=== PATIENT | female | born 1960 ===

== ENCOUNTER 2018-07-11 09:30 | Emergency (ER) | payer OTHER ==
[2018-07-11 09:32] VITALS: BMI 22.4
[2018-07-11 09:36] VITALS: O2SAT 97
[2018-07-11] MEDS ORDERED: Mag&Al/Simet/Diphen/Lido 237 ML KIT PO STA (09:49)
--- NOTE | 2018-07-11 10:42 | C.PDOC ---
History Of Present Illness 58 y/o female presents to the ED for evaluation of throat pain. States 3 days ago she was cleaning her bathroom with bleach and felt she inhaled a lot of fumes. Patient is now complaining of a sore throat and pain with swallowing. States she feels as if needs to clear her throat constantly. Now also complaining of pain to her shoulders and back. Also notes that she wakes every day with throat itching and bilateral eye tearing. Otherwise no fever, cough, runny nose, headache, chest pain, SOB, abdominal pain, nausea, vomiting, or other complaints. Time Seen by Provider: 07/11/18 09:44 Chief Complaint (Nursing): ENT Problem History Per: Patient History/Exam Limitations: no limitations Onset/Duration Of Symptoms: Days Current Symptoms Are (Timing): Still Present Past Medical History Reviewed: Historical Data, Nursing Documentation, Vital Signs Vital Signs: Last Vital Signs Temp 98.0 F 07/11/18 09:32 Pulse 62 07/11/18 09:32 Resp 18 07/11/18 09:32 BP 117/80 07/11/18 09:32 Pulse Ox 97 07/11/18 09:32 - Medical History PMH: Gastrointestinal Ulcer, Hyperthyroidism Surgical History: Cholecystectomy Family History: States: Unknown Family Hx - Social History Hx Tobacco Use: No Hx Alcohol Use: No Hx Substance Use: No - Immunization History Hx Tetanus Toxoid Vaccination: No Hx Influenza Vaccination: No Hx Pneumococcal Vaccination: No Review Of Systems Except As Marked, All Systems Reviewed And Found Negative. Constitutional: Negative for: Fever, Chills Eyes: Positive for: Other (Increased tearing). Negative for: Vision Change ENT: Positive for: Throat Pain, Other (Pain on swallowing). Negative for: Nose Discharge Cardiovascular: Negative for: Chest Pain Respiratory: Negative for: Cough, Shortness of Breath Gastrointestinal: Negative for: Nausea, Vomiting, Abdominal Pain Musculoskeletal: Positive for: Shoulder Pain, Back Pain Neurological: Negative for: Headache, Dizziness Physical Exam - Physical Exam Appears: Non-toxic, No Acute Distress Skin: Warm, Dry, No Rash Head: Atraumatic, Normacephalic Eye(s): bilateral: Normal Inspection, PERRL, EOMI Nose: Normal Oral Mucosa: Moist Throat: No Erythema, No Exudate, No Drooling Neck: Normal ROM, Supple Chest: Symmetrical, No Deformity Cardiovascular: Rhythm Regular, No Murmur Respiratory: Normal Breath Sounds, No Accessory Muscle Use, No Rhonchi, No Wheezing Gastrointestinal/Abdominal: Bowel Sounds, Soft, No Tenderness Back: No CVA Tenderness, No Vertebral Tenderness, No Paraspinal Tenderness Extremity: Bilateral: Atraumatic, Normal Color And Temperature Neurological/Psych: Oriented x3 ED Course And Treatment O2 Sat by Pulse Oximetry: 97 (RA) Pulse Ox Interpretation: Normal Medical Decision Making Medical Decision Making: Impression: Exposure to chemical fumes vs Viral URI Plan: --Motrin 600mg PO --Magic mouthwash 10ml PO 11:00 Patient reports improvement in symptoms after medication given. Plan is to discharge patient home with prescriptions for the same. Advised to follow up with PMD. Disposition Counseled Patient/Family Regarding: Need For Followup, Rx Given - Disposition Referrals: [facility] [Outside] Disposition: HOME/ ROUTINE Disposition Time: 11:01 Condition: STABLE Prescriptions: Ibuprofen [Motrin] 600 mg PO TID #15 tab Mag&Al/Simet/Diphen/Lido [First Magic Mouthwash] 5 ml PO TID #30 ml Forms: [facility] (Mauritian), Gen Discharge Inst German, [facility] (German) - POA Present On Arrival: None - Clinical Impression Clinical Impression: Viral syndrome, Chemical exposure - Scribe Statement The provider has reviewed the documentation as recorded by the Petros Younger Provider Attestation: All medical record entries made by the Scribe were at my direction and pe rsonally dictated by me. I have reviewed the chart and agree that the record accurately reflects my personal performance of the history, physical exam, medical decision making, and the department course for this patient. I have also personally directed, reviewed, and agree with the discharge instructions and disposition.
[2018-07-11 11:05] VITALS: BP 127/81; PULSE 51; RESP 16; TEMP 97.7
== END 2018-07-11 11:33 | disposition home or self-care (01) ==
LOC: C.ER 09:30
DX: Z77.098 Contact with and (suspected) exposure to other hazardous, chiefly nonmedicinal, chemicals (principal); B34.9 Viral infection, unspecified

== ENCOUNTER 2018-07-21 08:27 | Outpatient (CLI) | payer OTHER | END 2018-07-21 08:28 | disposition home or self-care (01) | LOC: C.LAB 08:27 | DX: E05.90 Thyrotoxicosis, unspecified without thyrotoxic crisis or storm (principal) ==